=== PATIENT | male | born 1985 | race Caucasian/White ===

== ENCOUNTER → 2020-12-29 | Outpatient (CLI) | payer BC ==
--- NOTE | 2020-12-29 16:22 | KCIC ---
MRI STUDY OF THE RIGHT HAND WITHOUT CONTRAST Clinical indications: Painful posterior lateral right hand mass between the first and second digits w hich has been present for 6-8 weeks. TECHNIQUE: Noncontrast MRI sequences of the right hand in the area of the mass as indicated by the pa tient was performed in all 3 planes. Skin marker was placed in the area of the palpable lump as indic ated by the patient. FINDINGS: In the area of palpable lump, there is a prominent curvilinear high T2 signal vascular stru cture extending superficially and then deep between the first and second metacarpal bones. This is in termediate on signal intensity on T1-weighted images. Therefore, no high flow velocity signal loss is seen to indicate arterial flow or AVM. Therefore, this may represent a varicosity or slow flow heman gioma. No other soft tissue mass or abscess or hematoma is evident. The flexor and extensor tendons i n the area are intact without tenosynovitis. No soft tissue edema or muscle edema is evident. No jacques ow signal abnormality or marrow infiltrative process or fracture is seen. IMPRESSION: Palpable mass corresponds to a prominent low velocity curvilinear vascular structure whic h may represent a prominent varicosity or possibly a small slow flow hemangioma. The greatest measure ment is 14 mm. Recommend continued clinical follow-up with regard to any growth in size. Electronically signed by: Sundeep Still MD (12/29/2020 4:19 PM) [id number]
== END ==
LOC: KCIC MRI 13:59
PROVIDERS: ATTEND Orthopaedic Surgery Hand Surgery
DX: R22.31 Localized swelling, mass and lump, right upper limb (principal)
CPT/HCPCS: 73218